=== PATIENT | female | born 1980 | race African-American/Black ===

== ENCOUNTER 2018-11-27 07:59 | Emergency (ER) | payer OTHER, MEDICAID ==
[~2018-11-27] VITALS: Ht 152.4 cm; Wt 59.9 kg
[2018-11-27 08:13] VITALS: BP 96/62
[2018-11-27 10:26] LABS: Urine Bacteria NONE SEEN /hpf (None Seen); Urine Blood Negative /uL (Negative); Urine Specific Gravity 1.016 (1.001-1.035); Urine WBC 2 /hpf (0 - 5)
== END 2018-11-27 11:13 | disposition left against medical advice (07) ==
LOC: ER 08:05
DX: O36.4XX0 Maternal care for intrauterine death, not applicable or unspecified (principal); Z3A.01 Less than 8 weeks gestation of pregnancy; Z53.29 Procedure and treatment not carried out because of patient's decision for other reasons
CPT/HCPCS: 81001